=== PATIENT | female | born 1965 | race Caucasian/White ===

== ENCOUNTER 2017-06-15 12:38 | Day surgery (SDC) | payer BC ==
[2017-06-15 13:03] VITALS: TEMP 98.3
[2017-06-15 14:07] VITALS: BP 117/76; PULSE 70; RESP 18
--- NOTE | 2017-06-15 14:29 | US ---
ULTRASOUND GUIDED FNA THYROID BIOPSY: CLINICAL HISTORY: Right thyroid nodule FINDINGS: The procedure was explained to the patient. The risks, complications, benefits and alternatives were discussed and any questions were answered. Informed consent was obtained. Patient was placed supin e on the ultrasound table and prepped and draped in the usual sterile fashion. Utilizing a 25 gauge needle, five passes were made into the right thyroid nodule. Patient was stable throughout the procedure. Pathology is pending. All elements of maximal barrier technique were utilized. IMPRESSION: 1. Successful ultrasound guided FNA thyroid biopsy.
== END 2017-06-15 14:06 | disposition home or self-care (01) ==
LOC: RADPROMAIN 12:38
PROVIDERS: ATTEND Surgery
DX: E04.1 Nontoxic single thyroid nodule (principal); C56.9 Malignant neoplasm of unspecified ovary
CPT/HCPCS: 10022; 76942; 88173; 88305

== ENCOUNTER → 2018-06-25 | Outpatient (CLI) | payer BC ==
--- NOTE | 2018-06-25 10:06 | US ---
EXAMINATION TYPE: US thyroid st tissue head/neck DATE OF EXAM: 06/25/2018 COMPARISON: Ultrasound thyroid FNA 06/15/2017 CLINICAL HISTORY: 52-year-old female E04.1 THYROID NODULE. History of thyroid nodule, no thyroid meds TECHNIQUE: Multiple sonographic images of the thyroid gland are obtained. FINDINGS: GLAND SIZE: Right Lobe: 4.3 x 2.1 x 1.7 cm Overall Parenchyma: homogenous Left Lobe: 4.0 x 1.8 x 1.4 cm Overall Parenchyma: homogeneous Isthmus Thickness: 0.5 cm NODULES RIGHT: # of nodules measured on right: 3 1. 1.7 X 1.2 x 1.0 cm hypoechoic solid nodule at the mid pole with well-defined margins. This nodu le is wider than tall and shows intranodular vascularity. Prior size: 1.6 x 0.9 cm, previously 2. 0.6 X 0.5 x 0.5 cm hypoechoic nodule at the upper pole just adjacent with well-defined margins; i nterrupted peripheral calcification. This nodule is wide as tall and shows intranodular vascularity. Prior size: No previous 3. 0.6 X 0.7 x 0.6 cm echogenic solid nodule at the lower pole with well-defined margins. This nodu le is wider than tall and shows no intranodular vascularity. Prior size: No previous LEFT: # of nodules measured on left: 0 ISTHMUS: # of nodules measured in the isthmus: 1 1. 0.5 X 0.5 x 0.3 cm hypoechoic nodule at the lower left lateral pole with well-defined margins. This nodule is wider than tall and shows no intranodular vascularity. Prior size: No previous Bilateral neck scanned, no evidence of lymphadenopathy. IMPRESSION: 3 nodules on the right (measuring up to 1.7 cm, appears relatively stable to the biopsied nodule and 06/15/2017) and one nodule in the isthmus (5 mm). The 2 smaller right lobe nodules and the isthmic nodu le can be reassessed at follow-up.
== END | disposition home or self-care (01) ==
LOC: RADUSWWP 08:53
PROVIDERS: ATTEND Surgery
DX: E04.2 Nontoxic multinodular goiter (principal)
CPT/HCPCS: 76536